=== PATIENT | male | born 1965 | race Caucasian/White ===

== ENCOUNTER 2021-03-16 06:51 | Emergency (ER) | payer OTHER, SELFPAY ==
[2021-03-16 07:31] LABS: Absolute Lymphocytes (CBC) 0.5 K/uL (0.7-4.9); Basophils % 0.3 % (0-1.3); Hematocrit 45.9 % (39.6-49.0); Lymphocytes % 6.4 % (15.3-44.8); MPV 7.2 fL (7.6-11.3); RBC Red Blood Cell Count 5.14 M/uL (4.33-5.43)
[2021-03-16 07:49] LABS: ALT/SGPT 39 U/L (12-78); AST/SGOT 22 U/L (15-37); Albumin 3.7 g/dL (3.4-5.0); Alkaline Phosphatase 75 U/L (45-117); BUN Blood Urea Nitrogen 19 mg/dL (7-18); Bicarbonate 28 mmol/L (21-32); Bilirubin Direct 0.2 mg/dL (0-0.2); Bilirubin Total 0.4 mg/dL (0.2-1.0); Glucose Level 109 mg/dL (74-106); Magnesium 2.4 mg/dL (1.8-2.4); NT PRO-BNP 76 pg/mL (<125); Potassium 4.4 mmol/L (3.5-5.1); Protein, Total 6.9 g/dL (6.4-8.2); Sodium Level 142 mmol/L (136-145); Troponin (Emerg Dept Use Only) < 0.02 ng/mL (0.0-0.045)
[2021-03-16] MEDS ORDERED: LORAZEPAM 0.5 MG TABLET ONE (08:13)
[2021-03-16 08:14] LABS: Blood Morphology Comment NOT SEEN (NOT SEEN); Platelet Estimate ADEQ
--- NOTE | 2021-03-16 08:43 | RAD REPORT ---
EXAM DESCRIPTION: RAD - Chest Single View - 03/16/2021 8:38 am CLINICAL HISTORY: CHEST PAIN COMPARISON: <Comparisons> FINDINGS: Lines: None. Lungs: No evidence of edema or pneumonia. Pleural: No significant pleural effusions or pneumothorax. Cardiac: The heart size is within normal limits. Bones: No acute fractures. Other: IMPRESSION: No acute cardiopulmonary disease.
--- NOTE | 2021-03-16 10:54 | EDPHYS ---
Physician Documentation [facility] Name: Jacob Levin Jr Age: 55 yrs Sex: Male : 1965 Arrival Date: 03/16/2021 Time: 06:57 Bed 18 Private MD: ED Physician Ra Byers HPI: 03/16 07:44 This 55 yrs old Male presents to ER via EMS with complaints of stressed, kb overwhelmed. 07:44 The patient presents to the emergency department with anxiety, over work. Onset: The kb symptoms/episode began/occurred just prior to arrival. Associated signs and symptoms: Pertinent positives; "pressure in shoulders," "weird feeling". Severity of symptoms: At their worst the symptoms were moderate in the emergency department the symptoms have improved. The patient has not experienced similar symptoms in the past. The patient has not recently seen a physician. Pt states he was working and felt overwhelmed and stressed, then started shaking. Reports he felt some stress in his shoulders and neck. Denies chest pain, shortness of breath, nausea. States he just has a weird feeling now. Has never had anything like this before. . Historical: - Allergies: 07:11 Aspirin; sl2 07:11 tetanus toxoid, adsorbed; sl2 - Home Meds: 07:11 None [Active]; sl2 - PMHx: 07:11 None; sl2 - PSHx: 07:11 None; sl2 - Immunization history:: Adult Immunizations up to date, Client reports having NOT received the Covid vaccine. - Social history:: Smoking status: Patient denies any tobacco usage or history of. ROS: 07:44 Constitutional: Negative for fever, chills, and weight loss. kb 07:44 Psych: Positive for "stress and overwhelmed". 07:44 All other systems are negative. Exam: 07:44 Constitutional: This is a well developed, well nourished patient who is awake, alert, kb and in no acute distress. Head/Face: Normocephalic, atraumatic. ENT: Moist Mucous membranes Neck: Trachea midline, no thyromegaly or masses palpated, and no cervical lymphadenopathy. Supple, full range of motion without nuchal rigidity, or vertebral point tenderness. No Meningismus. Cardiovascular: Regular rate and rhythm with a normal S1 and S2. No gallops, murmurs, or rubs. No pulse deficits. Respiratory: Respirations even and unlabored. No increased work of breathing, no retractions or nasal flaring. Abdomen/GI: Soft, non-tender. No distention Skin: Warm, dry with normal turgor. Normal color. MS/ Extremity: Pulses equal, no cyanosis. Neurovascular intact. Full, normal range of motion. Neuro: Awake and alert, GCS 15, oriented to person, place, time, and situation. Moves all extremities. Normal gait. Psych: Awake, alert, with orientation to person, place and time. Behavior, mood, and affect are within normal limits. 07:44 Constitutional: The patient appears anxious. 07:48 ECG was reviewed by the Attending Physician. amna 09:20 ECG was reviewed by the Attending Physician. amna Vital Signs: 06:52 BP 134 / 71; Pulse 78; Resp 18; Temp 97.7(O); Pulse Ox 99% on R/A; sl2 07:00 BP 134 / 71; Pulse 76; Resp 18; Temp 97.7; Pulse Ox 99% ; Weight 97.52 kg; Height 5 ft. sl2 7 in. (170.18 cm); 07:00 BP 127 / 67; Pulse 77; Resp 20; Pulse Ox 99% on R/A; sl2 07:15 BP 113 / 74; Pulse 76; Resp 18; Pulse Ox 99% on R/A; sl2 07:30 BP 102 / 67; Pulse 75; Resp 18; Pulse Ox 99% on R/A; sl2 07:45 BP 107 / 64; Pulse 76; Resp 18; Pulse Ox 99% ; sl2 08:00 BP 112 / 68; Pulse 74; Resp 16; Pulse Ox 98% on R/A; sl2 08:30 BP 122 / 66; Pulse 73; Resp 16; Pulse Ox 98% on R/A; sl2 09:00 BP 113 / 64; Pulse 71; Resp 18; Temp 97.9(O); Pulse Ox 100% on R/A; sl2 10:00 BP 112 / 80; Pulse 67; Resp 16; Pulse Ox 100% on R/A; sl2 10:30 BP 119 / 64; Pulse 71; Resp 18; Temp 97.8(O); Pulse Ox 99% on R/A; sl2 07:00 Body Mass Index 33.67 (97.52 kg, 170.18 cm) sl2 MDM: 06:57 Patient medically screened. kb 07:47 Data reviewed: vital signs, nurses notes. Data reviewed: I have discussed the patient's kb presentation/case with the attending Emergency Department Physician;. Data interpreted: Pulse oximetry: on room air is 99 %. Interpretation: normal. 10:53 Counseling: I had a detailed discussion with the patient and/or guardian regarding: the kb historical points, exam findings, and any diagnostic results supporting the discharge/admit diagnosis, lab results, radiology results, the need for outpatient follow up, a family practitioner, to return to the emergency department if symptoms worsen or persist or if there are any questions or concerns that arise at home. 03/16 06:57 Order name: Basic Metabolic Panel; Complete Time: 07:54 kb 03/16 06:57 Order name: CBC with Diff; Complete Time: 08:26 kb 03/16 06:57 Order name: LFT's; Complete Time: 07:54 kb 03/16 06:57 Order name: Magnesium; Complete Time: 07:54 kb 03/16 06:57 Order name: NT PRO-BNP; Complete Time: 07:54 kb 03/16 06:57 Order name: PT-INR; Complete Time: 07:41 kb 03/16 06:57 Order name: Troponin (emerg Dept Use Only); Complete Time: 07:54 kb 03/16 06:57 Order name: EKG; Complete Time: 06:58 kb 03/16 06:57 Order name: Cardiac monitoring; Complete Time: 07:23 kb 03/16 08:14 Order name: Manual Differential; Complete Time: 08:26 EDMS 03/16 08:27 Order name: Chest Single View XRAY; Complete Time: 08:44 kb 03/16 08:27 Order name: Troponin (emerg Dept Use Only); Complete Time: 10:53 kb 03/16 08:27 Order name: EKG; Complete Time: 08:28 kb 03/16 06:57 Order name: EKG - Nurse/Tech; Complete Time: 07:44 kb 03/16 06:57 Order name: IV Saline Lock; Complete Time: 07:23 kb 03/16 06:57 Order name: Labs collected and sent; Complete Time: 07:23 kb 03/16 06:57 Order name: O2 Per Protocol; Complete Time: 07:23 kb 03/16 06:57 Order name: O2 Sat Monitoring; Complete Time: 07:23 kb 03/16 08:27 Order name: EKG - Nurse/Tech; Complete Time: 10:42 kb EC:48 Rate is 69 beats/min. Rhythm is regular. QRS [place] is Normal. MT interval is normal at kb 182 msec. QRS interval is normal at 80 msec. QT interval is normal at 358 msec. 09:20 Rate is 70 beats/min. Rhythm is regular. QRS [place] is Normal. MT interval is normal at kb 182 msec. QRS interval is normal at 82 msec. QT interval is normal at 358 msec. Administered Medications: 08:16 Drug: Ativan (LORazepam) 0.5 mg Route: IVP; Site: left antecubital; sl2 11:07 Follow up: Response: No adverse reaction; Anxiety decreased sl2 Disposition: 11:35 Co-signature as Attending Physician, Ra Byers MD I agree with the assessment and rn plan of care. Attestation: The patient's history, exam findings, diagnostics, and a summary of any interventions or procedures was reviewed in detail with Marcella DAI. Disposition Summary: 03/16/21 10:53 Discharge Ordered Location: Home kb Condition: Stable kb Diagnosis - Acute stress reaction kb Followup: kb - With: Emergency Department - When: As needed - Reason: Worsening of condition Followup: kb - With: Private Physician - When: 2 - 3 days - Reason: Recheck today's complaints, Continuance of care, Re-evaluation by your physician Discharge Instructions: - Discharge Summary Sheet kb - Stress, Adult kb - Panic Attack, [id number] kb Forms: - Medication Reconciliation Form kb - Thank You Letter kb - Antibiotic Education kb - Prescription Opioid Use kb Signatures: Dispatcher [employer] EDMarcella Landers FNP-C FNP-Ra Adams MD MD rn Landell, Sophia, RN RN 2
--- NOTE | 2021-03-16 10:54 | ER ---
Nurse's Notes [facility] Name: Jacob Levin Jr Age: 55 yrs Sex: Male : 1965 Arrival Date: 03/16/2021 Time: 06:57 Bed 18 Private MD: Diagnosis: Acute stress reaction Presentation: 03/16 06:52 Chief complaint: Patient states: Patient presents to ED via [facility] - states was at [employer] [facility] work this morning and felt overwhelmed by his work-load "I have plenty to do and no time to do it." States started feeling very "weird and shaky, I was slumped over and when I straightened up I felt a sudden twinge of pain across my chest then it went away. Right now I feel just shaky and weird, I have no pain". Coronavirus screen: Vaccine status: Patient reports being unvaccinated. Ebola Screen: Patient negative for fever greater than or equal to 101.5 degrees Fahrenheit, and additional compatible Ebola Virus Disease symptoms Patient denies exposure to infectious person. Patient denies travel to an Ebola-affected area in the 21 days before illness onset. No symptoms or risks identified at this time. 06:52 Initial Sepsis Screen: Does the patient meet any 2 criteria? No. Patient's initial 2 sepsis screen is negative. Does the patient have a suspected source of infection? No. Patient's initial sepsis screen is negative. Risk Assessment: Do you want to hurt yourself or someone else? Patient reports no desire to harm self or others. Onset of symptoms was March 16, 2021. 06:52 Acuity: [place] 2 sl2 07:00 Method Of Arrival: EMS: [facility] Triage Assessment: 07:11 General: Appears uncomfortable, well groomed, well developed, Behavior is calm, sl2 cooperative, appropriate for age, quiet. Pain: Denies pain. Neuro: No deficits noted. Level of Consciousness is awake, alert, obeys commands, Oriented to person, place, time, situation, Appropriate for age Executive Office [employer] are equal bilaterally Moves all extremities. Full function Gait is steady, Speech is normal, Facial symmetry appears normal, Reports "feeling shaky and weird". Historical: - Allergies: 07:11 Aspirin; sl2 07:11 tetanus toxoid, adsorbed; sl2 - Home Meds: 07:11 None [Active]; sl2 - PMHx: 07:11 None; sl2 - PSHx: 07:11 None; sl2 - Immunization history:: Adult Immunizations up to date, Client reports having NOT received the Covid vaccine. - Social history:: Smoking status: Patient denies any tobacco usage or history of. Screenin:15 Abuse screen: Denies threats or abuse. Denies injuries from another. 2 07:15 Nutritional screening: No deficits noted. Tuberculosis screening: No symptoms or risk sl2 factors identified. Never had TB. Possible symptoms: None Risk factors: None. Fall Risk None identified. No fall in past 12 months (0 pts). No secondary diagnosis (0 pts). IV access (20 points). Ambulatory Aid- None/Bed Rest/Nurse Assist (0 pts). Gait- Normal/Bed Rest/Wheelchair (0 pts) Mental Status- Oriented to own ability (0 pts). Total Jones Fall Scale indicates No Risk (0-24 pts). Assessment: 07:49 Pain: Denies pain. Cardiovascular: No deficits noted. Denies chest pain, Rhythm is sl2 regular. Respiratory: No deficits noted. Airway is patent Trachea midline Respiratory effort is even, unlabored, Respiratory pattern is regular, symmetrical. GI: No deficits noted. No signs and/or symptoms were reported involving the gastrointestinal system. : No deficits noted. No signs and/or symptoms were reported regarding the genitourinary system. EENT: No deficits noted. No signs and/or symptoms were reported regarding the EENT system. Derm: No deficits noted. No signs and/or symptoms reported regarding the dermatologic system. Musculoskeletal: No deficits noted. No signs and/or symptoms reported regarding the musculoskeletal system. 08:34 Reassessment: Portable CXR completed at bedside Patient denies pain at this time. sl2 Vital Signs: 06:52 BP 134 / 71; Pulse 78; Resp 18; Temp 97.7(O); Pulse Ox 99% on R/A; sl2 07:00 BP 134 / 71; Pulse 76; Resp 18; Temp 97.7; Pulse Ox 99% ; Weight 97.52 kg; Height 5 ft. sl2 7 in. (170.18 cm); 07:00 BP 127 / 67; Pulse 77; Resp 20; Pulse Ox 99% on R/A; sl2 07:15 BP 113 / 74; Pulse 76; Resp 18; Pulse Ox 99% on R/A; sl2 07:30 BP 102 / 67; Pulse 75; Resp 18; Pulse Ox 99% on R/A; sl2 07:45 BP 107 / 64; Pulse 76; Resp 18; Pulse Ox 99% ; sl2 08:00 BP 112 / 68; Pulse 74; Resp 16; Pulse Ox 98% on R/A; sl2 08:30 BP 122 / 66; Pulse 73; Resp 16; Pulse Ox 98% on R/A; sl2 09:00 BP 113 / 64; Pulse 71; Resp 18; Temp 97.9(O); Pulse Ox 100% on R/A; sl2 10:00 BP 112 / 80; Pulse 67; Resp 16; Pulse Ox 100% on R/A; sl2 10:30 BP 119 / 64; Pulse 71; Resp 18; Temp 97.8(O); Pulse Ox 99% on R/A; sl2 07:00 Body Mass Index 33.67 (97.52 kg, 170.18 cm) sl2 ED Course: 06:57 Patient arrived in ED. kb 06:57 Marcella Tai FNP-C [facility]. kb 06:57 Jonathan Guevara MD is Attending Physician. kb 07:00 Dorothea Schwartz, RN is Primary Nurse. sl2 07:11 Triage completed. sl2 07:11 Arm band placed on. sl2 07:15 Patient has correct armband on for positive identification. Bed in low position. Side sl2 rails up X2. Adult w/ patient. 07:15 No provider procedures requiring assistance completed. Maintain EMS IV. Dressing sl2 intact. Good blood return noted. Site clean \\T\\ dry. Gauge \\T\\ site: # 22 gauge, left antecubital . Flushed left antecubital peripheral line with 5 ml normal saline. 07:41 Ra Byers MD is Attending Physician. kb 08:38 Chest Single View XRAY In Process Unspecified. EDMS 08:47 Primary Nurse role handed off by Dorothea Schwartz, RN bd 10:08 Dorothea Schwartz, RN is Primary Nurse. sl2 10:42 Lab(s) recollected, by me, sent to lab. em1 11:05 IV discontinued, intact, bleeding controlled, No redness/swelling at site. Pressure sl2 dressing applied. Administered Medications: 08:16 Drug: Ativan (LORazepam) 0.5 mg Route: IVP; Site: left antecubital; sl2 11:07 Follow up: Response: No adverse reaction; Anxiety decreased sl2 Outcome: 10:53 Discharge ordered by MD. woo 11:05 Discharged to home sl2 11:05 Discharged to home ambulatory, with family. 11:05 Condition: good 11:05 Condition: stable 11:05 Discharge instructions given to patient, family, Instructed on discharge instructions, follow up and referral plans. Demonstrated understanding of instructions, follow-up care. 11:05 Patient left the ED. [email or web address] Signatures: Dispatcher [employer] EDMarcella Landers, ROSELYN-C CW OPERATOR-Jody Mcguire Eric em1 Landell, Sophia, RN RN sl2 Christianne Griffin RN RN jh5
[2021-03-16 11:38] VITALS: BP 119/64; TEMP 97.8; O2SAT 99
== END 2021-03-16 11:05 | disposition home or self-care (01) ==
LOC: ER 06:51
DX: F43.0 Acute stress reaction (principal)
CPT/HCPCS: 36415; 71045; 80048; 80076; 83735; 83880; 84484; 85025; 85610; 93005; 96374; 99284